=== PATIENT | male | born 1960 | race Caucasian/White ===

== ENCOUNTER → 2017-02-25 | Outpatient (CLI) | payer MEDICARE, MEDICAID, SELFPAY | PROVIDERS: Family Provider Physician Assistant; Visit Provider Physician Assistant | DX: R06.09 Other forms of dyspnea (principal) | CPT/HCPCS: 93306 ==

== ENCOUNTER → 2017-05-16 13:20 | Outpatient (CLI) | payer MEDICARE, MEDICAID, SELFPAY ==
--- NOTE | 2017-05-16 13:27 | CI_ITS ---
Cerebrovascular Exam IMPRESSIONS 1. The bilateral vertebral arteries are patent with normal antegrade flow. 2. Study suggests 20-49%(upper end of scale)stenosis involving the right internal carotid artery. 3. Study suggests less than 20% stenosis involving the left internal carotid artery. History: Coronary artery disease. Coronary artery disease. Risk factors: Current tobacco use. Hypertension. Hyperlipidemia. Carotid duplex study. Complete study and Doppler flow study including spectral analysis, color and guo scale imaging. Height: Height: 157.5cm. Height: 62in. Weight: Weight: 81.6kg. Weight: 179.6lb. Body mass index: BMI: 32.9kg/m^2. Body surface area: BSA: 1.92m^2. Location: Vascular laboratory. Patient status: Outpatient. Tables: Arterial flow: + +--------+--------+ Location V s V ed + +--------+--------+ Right CCA - proximal 117cm/s 19.6cm/s + +--------+--------+ Right CCA - distal 50.1cm/s 12.8cm/s + +--------+--------+ Right ECA 84.5cm/s -------- + +--------+--------+ Right ICA - proximal 102cm/s 36.8cm/s + +--------+--------+ Right ICA - mid 131cm/s 46.1cm/s + +--------+--------+ Right ICA - distal 134cm/s 38.4cm/s + +--------+--------+ Right vertebral 54.5cm/s -------- + +--------+--------+ Left CCA - proximal 141cm/s 26.5cm/s + +--------+--------+ Left CCA - distal 91.1cm/s 24.4cm/s + +--------+--------+ Left ECA 116cm/s -------- + +--------+--------+ Left ICA - proximal 94.3cm/s 25.1cm/s + +--------+--------+ Left ICA - mid 86.4cm/s 25.9cm/s + +--------+--------+ Left ICA - distal 65.3cm/s 21.1cm/s + +--------+--------+ Left vertebral 40.3cm/s -------- + +--------+--------+ Velocity ratios: + + + + + + Right, V sys Right, V ed Left, V sys Left, V ed + + + + + + Max ICA/dist CCA 2.67 3.6 1.04 1.06 + + + + + + (Report amended ) Electronically signed by: Zach Valdes [id number]
== END ==
PROVIDERS: Family Provider Physician Assistant; PCP Physician Assistant; Visit Provider Physician Assistant
DX: Z95.5 Presence of coronary angioplasty implant and graft (principal); R42 Dizziness and giddiness
CPT/HCPCS: 93880

== ENCOUNTER → 2017-05-28 09:32 | Outpatient (CLI) | payer MEDICARE, MEDICAID, SELFPAY ==
[2017-05-28 13:59] LABS: Amphetamine/Metha Screen,Urine Negative ng/mL (<1000); Barbiturates Screen,Urine Negative ng/mL (<200); Benzodiazepines Screen,Urine Negative ng/mL (200); Cannabinoid Screen,Urine Negative ng/mL (<50); Cocaine Screen,Urine Negative ng/g (<300); Methadone Screen,Urine Negative ng/mL (<300); Opiate Screen,Urine Positive ng/mL (<300); Phencyclidine Screen,Urine Negative ng/mL (<25)
== END ==
PROVIDERS: Visit Provider Physician Assistant
DX: M51.16 Intervertebral disc disorders with radiculopathy, lumbar region (principal)
CPT/HCPCS: 80305

== ENCOUNTER → 2017-06-25 10:03 | Outpatient (REF) | payer MEDICARE, MEDICAID, SELFPAY ==
[2017-06-25 14:23] LABS: Basophils # 0.1 K/mm3 (0-0.2); Basophils % 0.6 % (0.1-2.0); Eosinophils # 0.2 K/mm3 (0.0-0.4); Hematocrit 44.8 % (42.0-52.0); Hemoglobin 14.6 g/dL (14.1-18.0); Lymphocytes # 2.5 K/mm3 (0.7-4.5); Lymphocytes % 30.5 K/mm3 (10-50); Mean Corpuscular HGB Conc 32.5 g/dL (31.8-35.4); Mean Corpuscular Hemoglobin 31.8 pg (27.0-31.2); Mean Corpuscular Volume 97.9 fl (80-94); Mean Platelet Volume 7.4 fl (7.4-10.4); Monocytes # 0.6 K/mm3 (0.1-1.0); Neutrophils # 4.9 K/mm3 (1.8-7.8); Neutrophils % 59.9 % (37.0-80.0); Platelet Count 343 K/mm3 (142-424); Red Blood Count 4.58 M/mm3 (4.60-6.20); Red Cell Distribution Width 13.2 % (11.5-17.5); White Blood Count 8.2 K/mm3 (4.8-10.8)
[2017-06-25 15:10] LABS: Alanine Aminotransferase 44 U/L (12-78); Albumin Level 4.1 gm/dL (3.4-5.0); Albumin/Globulin Ratio 1.4 (1.1-1.8); Alkaline Phosphatase 29 U/L (46-116); Anion Gap 12.9 mEq/L (5-15); Aspartate Amino Transferase 35 U/L (15-37); Bilirubin,Total 0.5 mg/dL (0.2-1.0); Blood Urea Nitrogen 10 mg/dL (7-18); Calcium 9.6 mg/dL (8.5-10.1); Carbon Dioxide 31 mmol/L (21.0-32.0); Chloride 104 mmol/L (98-107); Chol/HDL Ratio 2.5 (1-3.5); Cholesterol 132 mg/dL (140-200); Creatinine,Serum 1.03 mg/dL (0.70-1.30); Estimated Glomerular Filt Rate 75 ml/min (>60); GFR (African American) 90 ML/MIN (>60); Glucose 130 mg/dL (74-106); HDL Cholesterol 53 mg/dL (27-67); LDL Cholesterol 60 mg/dL (0-130); Potassium 4.9 mmoL/L (3.5-5.1); Sodium 143 mmol/L (136-145); T4 (Thyroxine) 8.6 ug/dl (4.7-13.3); Thyroid Stimulating Hormone 1.53 uIU/ml (0.358-3.740); Total Protein,Serum 7.1 gm/dL (6.4-8.2); Triglycerides 94 mg/dL (30-200); VLDL Cholesterol 19 mg/dL (0-40)
[2017-06-27 12:54] LABS: Prostate Specific Ag 0.5 ng/mL (0.0-4.0); Vitamin D 25 Hydroxy 49.2 ng/mL (30.0-100.0)
== END ==
LOC: LAB 10:03
PROVIDERS: Visit Provider Physician Assistant
DX: R42 Dizziness and giddiness (principal); I51.9 Heart disease, unspecified; E78.5 Hyperlipidemia, unspecified; R53.83 Other fatigue
CPT/HCPCS: 80053; 80061; 82652; 84153; 84154; 84436; 84443; 85025

== ENCOUNTER → 2017-08-27 09:59 | Outpatient (REF) | payer MEDICARE, SELFPAY ==
[2017-08-27 16:20] LABS: Amphetamine/Metha Screen,Urine Negative ng/mL (<1000); Barbiturates Screen,Urine Negative ng/mL (<200); Benzodiazepines Screen,Urine Negative ng/mL (200); Cannabinoid Screen,Urine Negative ng/mL (<50); Cocaine Screen,Urine Negative ng/g (<300); Methadone Screen,Urine Negative ng/mL (<300); Opiate Screen,Urine Negative ng/mL (<300); Phencyclidine Screen,Urine Negative ng/mL (<25)
== END ==
LOC: LAB 09:59
PROVIDERS: Visit Provider Physician Assistant
DX: M51.16 Intervertebral disc disorders with radiculopathy, lumbar region (principal)
CPT/HCPCS: 80305